=== PATIENT | female | born 1965 | race Caucasian/White ===

== ENCOUNTER 2018-03-22 14:10 | Observation (INO) ==
[2018-03-22] MEDS ORDERED: methylPREDNISolone 125 MG/2 ML VIAL IVP ONE (14:27)
[2018-03-22] MEDS ORDERED: Ipratropium/Albuterol Neb 3 ML IH ONE (14:27)
--- NOTE | 2018-03-22 14:37 | Emergency Department Note ---
Disposition Clinical Impression: Acute exacerbation of chronic obstructive airways disease Disposition: Admitted As Inpatient General Adult HPI - General Chief complaint: ED Shortness of Breath/Dyspnea Stated complaint: "Hypoglycemia/Headache" Time Seen by Provider: 03/22/18 14:20 Source: patient, family Limitations: no limitations - History of Present Illness Pain Scale: 5 - Related Data Home Medications Medication Instructions Recorded Confirmed ATROVENT Inhaler 04/09/17 Albuterol Inhaler 04/09/17 Albuterol Neb 04/09/17 Aspirin [Lo-Dose Aspirin EC] 04/09/17 Atorvastatin Calcium [Lipitor] 04/09/17 Atrovent Neb 04/09/17 Combivent Respimat Inhal [place] 04/09/17 Flonase 04/09/17 Gabapentin [Neurontin] 04/09/17 Glimepiride [Amaryl] 04/09/17 Losartan Potassium [Cozaar] 04/09/17 Metformin HCl [Glucophage] 04/09/17 Montelukast [Singulair] 04/09/17 Nabumetone [Nabumetone] 04/09/17 Oxygen [Oxygen] 04/09/17 Percocet 5-325 mg Tablet 04/09/17 Pregabalin [Lyrica] 04/09/17 Spiriva 04/09/17 Symbicort 160/4.5 04/09/17 raNITIdine HCl [Ranitidine HCl] 04/09/17 Previous Rx's Medication Instructions Recorded Ketorolac [Toradol] 10 mg PO BID #14 tablet 04/09/17 PredniSONE [Deltasone] 20 mg PO DAILY #12 tablet 04/09/17 Allergies Allergy/AdvReac Type Severity Reaction Status Date / Time acetaminophen Allergy Rash Verified 04/09/17 20:19 [From Darvocet-N] propoxyphene Allergy Rash Verified 04/09/17 20:19 [From Darvocet-N] Past Medical History - Past Medical History Medical history: Reports: arthritis, COPD, diabetes, hypertension, other Surgical history: Reports: non-contributory - Social History Smoking Status: Current every day smoker Smokeless Tobacco Status: No Alcohol use: Reports: none Drug use: Reports: none Physical Exam - General Limitations: no limitations General appearance: alert Course Vital Signs Temperature 97.7 F 03/22/18 14:12 Pulse Rate 88 03/22/18 14:12 Respiratory Rate 20 03/22/18 14:12 Blood Pressure 131/66 03/22/18 14:12 O2 Sat by Pulse Oximetry 69 03/22/18 14:12 Temperature 97.7 F 03/22/18 14:12 Pulse Rate 83 03/22/18 14:30 Respiratory Rate 18 03/22/18 14:30 Blood Pressure 145/76 03/22/18 14:30 O2 Sat by Pulse Oximetry 96 03/22/18 14:30 Oxygen Delivery Oxygen Delivery Nasal Cannula Attestation Statement - Attestation Attestation: I examined this patient and my medical decision-making was reviewed with the Resident Physician. I agree with the documented findings, disposition and treatment plan as described except to the extent set forth below. 52 year old female presntes to the ED with complaints of hypoxia, cough, hypoglycemia. Yunior states that she oes wear supplemtnal oxygen at home only at night at 2LNC. PAtient upon presentation was 69% on RA and increased to 85% on NRB and is now 89-90% on 6LNC. WE will continue to do respiratory resusitiation adn then admit to medicine.
[2018-03-22 15:06] LABS: Basophils # 0.1 K/mcL (0.0-0.2); Basophils % 0.5 %; Eosinophils # 0.2 K/mcL (0.0-0.6); Eosinophils % 1.6 %; Hematocrit 42.9 % (35.3-44.9); Hemoglobin 13.3 g/dL (11.5-15.4); Immature Granulocytes % 0.5 % (0-4); Lymphocytes # 2.5 K/mcL (0.6-4.6); Lymphocytes % 22.9 %; Mean Corpuscular Hemoglobin 29.5 pg (28.0-33.3); Mean Corpuscular Volume 95.1 fL (83.0-100.0); Mean Platelet Volume 9.3 fL (9.4-12.4); Monocytes # 0.9 K/mcL (0.0-1.3); Monocytes % 7.7 %; Neutrophils # 7.4 K/mcL (1.6-8.9); Platelet Count 224 K/mcL (140-400); Red Blood Count 4.51 M/mcL (3.82-4.97); Red Cell Distribution Width 14.9 % (11.5-14.5); Segmented Neutrophils % 66.8 %
[2018-03-22 15:14] LABS: VBG HCO3 37 mEq/L (21-27); VBG PCO2 82 mmHg (41-51); VBG PH 7.26 pH Units (7.32-7.42); VBG PO2 103 mmHg (25-50)
[2018-03-22 15:35] LABS: BUN/Creatinine Ratio 37 (6-26); Blood Urea Nitrogen 19 mg/dL (6-20); Calcium 9.1 mg/dL (8.6-10.3); Carbon Dioxide 36 mEq/L (23-29); Chloride 98 mEq/L (98-107); Glucose 125 mg/dL (70-105); Osmolality,Calculated 292 (280-300); Potassium 4.6 mEq/L (3.5-5.1); Sodium 139 mEq/L (136-145); Troponin I 0.03 ng/mL (< 0.04); eGFR For African Americans > 60 (> 60); eGFR For Non-African Americans > 60 (> 60)
--- NOTE | 2018-03-22 15:49 | Emergency Department Note ---
Disposition Clinical Impression: Acute exacerbation of chronic obstructive airways disease, Hypoxia Disposition: Admitted As Inpatient Condition: Fair Referrals: NONE,PCP [Primary Care Provider] - Forms: ED Satisfaction Letter Time of Disposition: 17:21 SOB HPI - General Chief Complaint: ED Shortness of Breath/Dyspnea Stated Complaint: "Hypoglycemia/Headache" Time Seen by Provider: 03/22/18 14:20 Source: patient, family Mode of arrival: wheelchair Limitations: no limitations Nursing Notes Reviewed: Yes Vital Signs Reviewed: Yes - History of Present Illness Patient is a 52-year-old female with past medical history of COPD, diabetes, hypertension. She presents today due to shortness of breath. She states that she has had productive cough and shortness of breath over the past week. She has a history of COPD but does not use any oxygen at home. She uses daily inhalers. She denies any fevers, nausea, vomiting, abdominal pain. She admits to occasional chest discomfort but only when coughing. She also notes that she recently increased her insulin and blood sugars have been in the 60s. Denies any lightheadedness, dizziness. - Related Data Home Medications Medication Instructions Recorded Confirmed Albuterol Sulfate [Ventolin Hfa] 2 puff IH Q4-6H PRN 03/22/18 03/22/18 Atorvastatin Calcium [Lipitor] 20 mg PO HS 03/22/18 03/22/18 Budesonide/Formoterol 160/4.5 2 puff IH BIDR 03/22/18 03/22/18 [Symbicort 160/4.5] Gabapentin [Neurontin] 800 mg PO QID 03/22/18 03/22/18 Glimepiride [Amaryl] 4 mg PO DAILY 03/22/18 03/22/18 Insulin Glargine,Hum.rec.anlog 30 unit SQ HS 03/22/18 03/22/18 [Lantus Solostar] Ipratropium [ATROVENT Inhaler] 2 puff IH Q6H PRN 03/22/18 03/22/18 Losartan Potassium [Cozaar] 100 mg PO DAILY 03/22/18 03/22/18 Meloxicam [Meloxicam] 15 mg PO DAILY 03/22/18 03/22/18 Metformin HCl [Glucophage] 1,000 mg PO BID 03/22/18 03/22/18 Montelukast [Singulair] 10 mg PO HS 03/22/18 03/22/18 Oxycodone HCl/Acetaminophen 1 tab PO TID PRN 03/22/18 03/22/18 [Percocet 7.5-325 mg Tablet] Ranitidine HCl [Acid Air Brush Operator] 150 mg PO BID 03/22/18 03/22/18 Saxagliptin HCl [Onglyza] 5 mg PO DAILY 03/22/18 03/22/18 Allergies Allergy/AdvReac Type Severity Reaction Status Date / Time acetaminophen Allergy Rash Verified 03/22/18 16:26 [From Darvocet-N] propoxyphene Allergy Rash Verified 03/22/18 16:26 [From Darvocet-N] All systems ED: reviewed and negative except as stated. Constitutional: Denies: fever Cardiovascular: Reports: chest pain Respiratory: Reports: cough, dyspnea, wheezes Gastrointestinal: Denies: abdominal pain, nausea, vomiting, diarrhea Genitourinary: Denies: urgency, dysuria Integumentary: Denies: rash Neurological: Denies: headache, weakness, numbness, paresthesias Endocrine: Reports: fatigue Past Medical History - Past Medical History Attestation: Yes The following information was validated with the patient. Source: patient Medical history: Reports: arthritis, COPD, diabetes, hypertension, other Surgical history: Reports: non-contributory - Social History Smoking Status: Current every day smoker Smokeless Tobacco Status: No Alcohol use: Reports: none Drug use: Reports: none Physical Exam - General Limitations: no limitations General appearance: alert - Head Head exam: atraumatic, normocephalic, normal inspection - Eye Eye exam: Present: normal appearance, PERRL, EOMI - ENT ENT exam: normal exam, normal oropharynx, mucous membranes moist - Neck Neck exam: Present: normal inspection, full ROM, trachea midline - Chest Chest inspection: Present: normal inspection, symmetric chest wall rise - Respiratory Respiratory exam: Present: wheezes (Diffuse wheezes throughout), other (No signs of accessory muscle use). Absent: stridor, accessory muscle use - Cardiovascular Cardiovascular exam: Present: regular rate, normal rhythm, normal heart sounds - Abdominal Exam Abdominal exam: Present: soft, Non-Tender. Absent: tenderness, distention, guarding, rebound, rigidity - Extremities Exam Extremities exam: Present: normal inspection, full ROM. Absent: tenderness, pedal edema - Neurological Exam Neurological exam: Present: alert, oriented X3 - Psychiatric Psychiatric exam: Present: normal affect, normal mood - Skin Skin exam: Present: warm, dry, intact, normal color Course Course Narrative: Patient was satting 69% on presentation. She is placed on 6 L nasal cannula and started satting in the mid 90s. Despite low oxygen saturation, she had no signs of overt respiratory distress. She is mildly tachypneic but had no accessory muscle use. She did have diffuse wheezes throughout. She is mentating well. Patient was given DuoNeb 3, Solu-Medrol. Basic workup was obtained including chest x-ray, EKG, troponin. Troponin negative, EKG showed normal sinus rhythm with no acute ST changes. Chest x-ray was negative for any pneumonia but did show small pleural effusion. Despite receiving breathing treatments, patient continues to require 4 L nasal cannula oxygen to keep saturation above 88%. Patient did trial herself off oxygen despite the medication not to and her saturation dropped again to the 60s. VBG was obtained and does show CO2 level in the 80s. This is likely chronic due to the patient still mentating well despite a high CO2 levels. We will need to admit the patient for further care. Azithromycin has also been added to patient's current regimen. Patient accepted to the hospitalist by Pablo Taylor Chest X-Ray 03/22/18 14:27 IMPRESSION: Increased interstitial markings which may reflect mild edema. Mild blunting of the right costophrenic angle which may reflect a small pleural effusion. D/ / Estefanía Stokes MD / Estefanía Stokes MD Interpreting Provider: Estefanía Stokes MD Vital Signs Temperature 97.7 F 03/22/18 14:12 Pulse Rate 88 03/22/18 14:12 Respiratory Rate 20 03/22/18 14:12 Blood Pressure 131/66 03/22/18 14:12 O2 Sat by Pulse Oximetry 69 03/22/18 14:12 Temperature 97.7 F 03/22/18 14:12 Pulse Rate 81 03/22/18 16:45 Respiratory Rate 18 03/22/18 16:45 Blood Pressure 141/73 03/22/18 16:45 O2 Sat by Pulse Oximetry 94 03/22/18 16:45 Oxygen Delivery Oxygen Delivery Room Air Shortness of Breath/Dyspnea - [facility] Narrative Medical decision making narrative: Patient was satting 69% on presentation. She is placed on 6 L nasal cannula and started satting in the mid 90s. Despite low oxygen saturation, she had no signs of overt respiratory distress. She is mildly tachypneic but had no accessory muscle use. She did have diffuse wheezes throughout. She is mentating well. Patient was given DuoNeb 3, Solu-Medrol. Basic workup was obtained including chest x-ray, EKG, troponin. Troponin negative, EKG showed normal sinus rhythm with no acute ST changes. Chest x-ray was negative for any pneumonia but did show small pleural effusion. Despite receiving breathing treatments, patient continues to require 4 L nasal cannula oxygen to keep saturation above 88%. Patient did trial herself off oxygen despite the medication not to and her saturation dropped again to the 60s. VBG was obtained and does show CO2 level in the 80s. This is likely chronic due to the patient still mentating well despite a high CO2 levels. We will need to admit the patient for further care. Azithromycin has also been added to patient's current regimen. Patient accepted to the hospitalist by Pablo Taylor - Medical Records Medical records reviewed: Yes I reviewed the patient's medical records. - Lab Data Lab results reviewed: Yes I reviewed the patient's lab results. Result diagrams: 03/22/18 14:45 03/22/18 14:27 Lab Results 03/22/18 03/22/18 03/22/18 Range/Units 14:27 14:45 14:45 WBC 11.1 (4.3-11.1) K/mcL RBC 4.51 (3.82-4.97) M/mcL Hgb 13.3 (11.5-15.4) g/dL Hct 42.9 (35.3-44.9) % MCV 95.1 (83.0-100.0) fL MCH 29.5 (28.0-33.3) pg MCHC 31.0 L (31.6-35.5) g/dL RDW 14.9 H (11.5-14.5) % Plt Count 224 (140-400) K/mcL MPV 9.3 L (9.4-12.4) fL Immature Gran % 0.5 (0-4) % Seg Neutrophils % 66.8 % Lymphocytes % 22.9 % Monocytes % 7.7 % Eosinophils % 1.6 % Basophils % 0.5 % Neutrophils # 7.4 (1.6-8.9) K/mcL Lymphocytes # 2.5 (0.6-4.6) K/mcL Monocytes # 0.9 (0.0-1.3) K/mcL Eosinophils # 0.2 (0.0-0.6) K/mcL Basophils # 0.1 (0.0-0.2) K/mcL VBG pH (7.32-7.42) pH Units VBG pCO2 (41-51) mmHg VBG pO2 (25-50) mmHg VBG HCO3 (21-27) mEq/L Sodium 139 (136-145) mEq/L Potassium 4.6 (3.5-5.1) mEq/L Chloride 98 (98-107) mEq/L Carbon Dioxide 36 H (23-29) mEq/L BUN 19 (6-20) mg/dL Creatinine 0.51 L (0.60-1.20) mg/dL Est GFR ( Amer) > 60 (> 60) Est GFR (Non-Af Amer) > 60 (> 60) BUN/Creatinine Ratio 37 H (6-26) Glucose 125 H (70-105) mg/dL Calculated Osmolality 292 (280-300) Lactic Acid (0.5-2.2) mmol/L Calcium 9.1 (8.6-10.3) mg/dL Troponin I 0.03 (< 0.04) ng/mL B-Natriuretic Peptide 66 (Less than 100) pg/mL Person Notif of Crit 03/22/18 03/22/18 03/22/18 Range/Units 15:07 15:08 15:36 WBC (4.3-11.1) K/mcL RBC (3.82-4.97) M/mcL Hgb (11.5-15.4) g/dL Hct (35.3-44.9) % MCV (83.0-100.0) fL MCH (28.0-33.3) pg MCHC (31.6-35.5) g/dL RDW (11.5-14.5) % Plt Count (140-400) K/mcL MPV (9.4-12.4) fL Immature Gran % (0-4) % Seg Neutrophils % % Lymphocytes % % Monocytes % % Eosinophils % % Basophils % % Neutrophils # (1.6-8.9) K/mcL Lymphocytes # (0.6-4.6) K/mcL Monocytes # (0.0-1.3) K/mcL Eosinophils # (0.0-0.6) K/mcL Basophils # (0.0-0.2) K/mcL VBG pH 7.26 L (7.32-7.42) pH Units VBG pCO2 82 H* (41-51) mmHg VBG pO2 103 H (25-50) mmHg VBG HCO3 37 H (21-27) mEq/L Sodium (136-145) mEq/L Potassium (3.5-5.1) mEq/L Chloride (98-107) mEq/L Carbon Dioxide (23-29) mEq/L BUN (6-20) mg/dL Creatinine (0.60-1.20) mg/dL Est GFR ( Amer) (> 60) Est GFR (Non-Af Amer) (> 60) BUN/Creatinine Ratio (6-26) Glucose (70-105) mg/dL Calculated Osmolality (280-300) Lactic Acid 1.4 1.1 (0.5-2.2) mmol/L Calcium (8.6-10.3) mg/dL Troponin I (< 0.04) ng/mL B-Natriuretic Peptide (Less than 100) pg/mL Person Notif of Aislinn TUTTLE - Radiology Data Radiology results reviewed: Yes I reviewed the patient's radiology results. Chest X-Ray 03/22/18 14:27 IMPRESSION: Increased interstitial markings which may reflect mild edema. Mild blunting of the right costophrenic angle which may reflect a small pleural effusion. D/ / Estefanía Stokes MD / Estefanía Stokes MD Interpreting Provider: Estefanía Stokes MD - EKG Data EKG attestation: Yes I reviewed and interpreted this EKG. EKG results narrative: 03/22/2018 at 14:21. Normal sinus rhythm. Rate 86. 187. QRS 93. QTC 374. Normal axis. No acute ST elevation or depression. S.B.A.R. - S.B.A.R. Situation: Demographics, MOA Background: Presenting Complaint, Relevant PMH, Meds, & Allergies Assessment: Vital Signs, Course and respsone to treatment, Exam Concerns, Patient/Family Expectation, Pertinant Lab Results, Outstanding Labs Recommendation: Barrier(s) to disposition, Recommendation based on pending studies, treatments, or consults S.B.A.R. Report Given to: Pablo taylor
[2018-03-22] MEDS ORDERED: Azithromycin 500 MG in D5% in Water 250 ML IVPB ONE (17:03)
[2018-03-22 17:49] LABS: VBG HCO3 37 mEq/L (21-27); VBG PCO2 80 mmHg (41-51); VBG PH 7.27 pH Units (7.32-7.42); VBG PO2 237 mmHg (25-50)
[2018-03-22] MEDS ORDERED: Ondansetron 4 MG/2 ML VIAL IVP PRN (20:11)
[2018-03-22] MEDS ORDERED: Acetaminophen 325 MG TABLET PO PRN (20:20)
[2018-03-22] MEDS ORDERED: Naloxone 0.4 MG/ML INJ IVP PRN (20:20)
[2018-03-22] MEDS ORDERED: Dextrose Gel 15 GM/37.5 ML TUBE PO PRN ×2 (20:28)
[2018-03-22] MEDS ORDERED: *HR* Dextrose 50 % in Water (Syg) 50 ML SYRINGE IVP PRN (20:28)
[2018-03-22] MEDS ORDERED: D5% in Water 1,000 ML IVC PRN (20:28)
--- NOTE | 2018-03-22 20:38 | Internal Med History&Physical ---
<Miller Baker - Last Filed: 03/22/18 20:54> Date of Encounter: 03/22/18 Time of Encounter: 20:33 Internal Medicine - H&P: HPI Chief complaint: low blood sugar, shortness of breath. Admitted From: Emergency Dept Plans for Post Hospital Care: Home History of present illness: Ms. Stock is a 52 year old female with past medical history of diabetes, lumbar stenosis, depression, GERD, hypertension, aortic stenosis, hyperlipidemia , COPD (worst 2 L oxygen at night), tobacco use, sleep apnea (not compliant with home CPAP). Patient states over the past 3 days, her blood sugar has been continuously dropping to the 50s. She used to take 30 units of Lantus at night but has stopped this due to hypoglycemia. She also reports increased shortness of breath since about 4 days ago. She also reports increased cough with yellow/ white sputum production. Patient admits to nausea without vomiting. She denies diarrhea, fever, chills. She reports mild dull chest pain with cough that has since subsided. She denies dizziness, hematuria, hematocrit easier, melena. According to ER note, patient was setting in the low 90s on high flow oxygen. She was admitted for COPD exacerbation. Past Med Surg Social Fam HX - Past Medical History Medical history: arthritis, COPD, diabetes, hypertension, other - Past Surgical History Surgical History: non-contributory - Social History Smoking Status: Current every day smoker Smokeless Tobacco Status: No Alcohol use: none Drug use: none Internal Medicine - H&P: Meds Albuterol Sulfate [Ventolin Hfa] 2 puff IH Q4-6H PRN 03/22/18 [History] Atorvastatin Calcium [Lipitor] 20 mg PO HS 03/22/18 [History] Budesonide/Formoterol 160/4.5 [Symbicort 160/4.5] 2 puff IH BIDR 03/22/18 [ History] Gabapentin [Neurontin] 800 mg PO QID 03/22/18 [History] Glimepiride [Amaryl] 4 mg PO DAILY 03/22/18 [History] Insulin Glargine,Hum.rec.anlog [Lantus Solostar] 30 unit SQ HS 03/22/18 [History ] Ipratropium [ATROVENT Inhaler] 2 puff IH Q6H PRN 03/22/18 [History] Losartan Potassium [Cozaar] 100 mg PO DAILY 03/22/18 [History] Meloxicam [Meloxicam] 15 mg PO DAILY 03/22/18 [History] Metformin HCl [Glucophage] 1,000 mg PO BID 03/22/18 [History] Montelukast [Singulair] 10 mg PO HS 03/22/18 [History] Oxycodone HCl/Acetaminophen [Percocet 7.5-325 mg Tablet] 1 tab PO TID PRN [History] Ranitidine HCl [Acid Mica Plate Layer] 150 mg PO BID 03/22/18 [History] Saxagliptin HCl [Onglyza] 5 mg PO DAILY 03/22/18 [History] 3 Allergy/AdvReac Type Severity Reaction Status Date / Time acetaminophen Allergy Rash Verified 03/22/18 16:26 [From Darvocet-N] propoxyphene Allergy Rash Verified 03/22/18 16:26 [From Darvocet-N] All Systems PM: A 10-system review of systems was performed and is negative for pertinent findings except as documented above in the HPI. - Constitutional Constitutional: as per HPI - EENT Eyes: as per HPI Ears: as per HPI Nose, mouth and throat: as per HPI - Breasts Breasts: as per HPI - Cardiovascular Cardiovascular ROS IM: as per HPI - Respiratory Respiratory: as per HPI - Gastrointestinal Gastrointestinal: as per HPI - Genitourinary Genitourinary: as per HPI Menstruation: as per HPI - Musculoskeletal Musculoskeletal ROS IM: as per HPI - Integumentary Integumentary IM: as per HPI - Neurological Neurological ROS: as per HPI - Psychiatric Psychiatric: as per HPI - Endocrine Endocrine IM: as per HPI - Hematologic/Lymphatic Hematologic/Lymphatic: as per HPI - Constitutional Vitals: Temp Pulse Resp BP Pulse Ox 98.3 F 80 20 143/71 91 03/22/18 19:56 03/22/18 19:56 03/22/18 19:56 03/22/18 19:56 03/22/18 19:56 General appearance: Present: A&O X 3, morbidly obese, pleasant, no acute distress, answers questions appropriately - Head Head exam: Present: atraumatic, normocephalic - Neck Neck exam general surgery: Present: supple, trachea midline - Respiratory Additional comments: Course breath sounds throughout, inspiratory and expiratory wheezing present in all lung allen. - Cardiovascular Cardiovascular exam: Present: RRR, +S1, +S2 - GI/Abdominal GI/Abdominal exam: Present: normal bowel sounds, soft. Absent: distended, tenderness - Extremities Exam Extremities exam: Absent: cyanotic, pedal edema - Neurological Exam Neurological exam: Present: alert, oriented X3, no focal deficits - Skin Skin exam: Present: intact Internal Med - H&P Results - Labs CBC & Chem 7: 03/22/18 14:45 03/22/18 14:27 - ABG Interpretation ABG results: 03/22/18 17:41 VBG pH 7.27 L VBG pCO2 80 H* VBG pO2 237 H VBG HCO3 37 H - Assessment and plan (1) Acute exacerbation of chronic obstructive airways disease Current Visit: Yes Status: Acute Assessment and plan: Patient reports 3 days of increased cough with yellow/white sputum production, increased shortness of breath. Chest x-ray showed increased interstitial markings, mild edema, small right pleural effusion VBG shows respiratory acidosis with metabolic compensation likely secondary to COPD exacerbation plan: Zithromax day 1 scheduled duonebs 40 mg methylprednisolone Q8 hours Symbicort consult respiratory therapy for initiation of BiPAP oxygen trend troponins (2) Hypoglycemia Current Visit: Yes Status: Acute Assessment and plan: Patient reports multiple episodes of hypoglycemia at home with sugars running in the 50s. She is to take 30 units of Lantus at night, but reports have stopped doing this because of hypoglycemia. Suspected effect of sulfonylurea, consider discontinuing prior to discharge. (3) Hyperlipidemia Current Visit: Yes Status: Acute Assessment and plan: Continue Od[place] Qualifiers: Hyperlipidemia type: unspecified Qualified Code(s): E78.5 - Hyperlipidemia , unspecified (4) Hypertension Current Visit: Yes Status: Acute Assessment and plan: Continue home medications Qualifiers: Hypertension type: essential hypertension Qualified Code(s): I10 - Essential (primary) hypertension (5) DVT prophylaxis Current Visit: Yes Status: Acute Assessment and plan: Heparin SQ (6) Diabetes mellitus Current Visit: Yes Status: Chronic Assessment and plan: Patient takes insulin, metformin, sulfonylurea at home because of history of hypoglycemia at home, will not start basal insulin at this time plan: low-dose sliding scale insulin, cardiac diet, aCHS Accu checks Qualifiers: Diabetes mellitus type: type 2 Diabetes mellitus ferry terminal supervisor insulin use: unspecified ferry terminal supervisor insulin use status Diabetes mellitus complication status : with unspecified complications Qualified Code(s): E11.8 - Type 2 diabetes mellitus with unspecified complications - Time Spent With Patient Total time spent is greater than 50% in coordination of care (as documented) at patient's floor/unit and/or counseling patient: <Kingsley Vanegas P - Last Filed: 03/22/18 21:37> Date of Encounter: 03/22/18 Internal Medicine - H&P: HPI History of present illness: Ms. Stock is a 52 year old female All Systems PM: A 10-system review of systems was performed and is negative for pertinent findings except as documented above in the HPI. - Constitutional Vitals: Temp Pulse Resp BP Pulse Ox 98.3 F 80 23 143/71 93 03/22/18 19:56 03/22/18 19:56 03/22/18 21:04 03/22/18 19:56 03/22/18 21:04 Internal Med - H&P Results - Labs CBC & Chem 7: 03/22/18 14:45 03/22/18 14:27 - ABG Interpretation ABG results: 03/22/18 17:41 VBG pH 7.27 L VBG pCO2 80 H* VBG pO2 237 H VBG HCO3 37 H - Attending Attestation I examined this patient and my medical decision-making was reviewed with the Resident Physician. I agree with the documented findings, disposition and treatment plan as described except to the extent set forth below. seen and examined multiple comobidities admitted with COPD exacerbation Abx/Steroids/BDAs KAREN protocol ECHO BIPAP as necessary may need cardiology evaluation. - Assessment and plan (1) Acute exacerbation of chronic obstructive airways disease Current Visit: Yes Status: Acute (2) Hypoglycemia Current Visit: Yes Status: Acute (3) Hyperlipidemia Current Visit: Yes Status: Acute Qualifiers: Hyperlipidemia type: unspecified Qualified Code(s): E78.5 - Hyperlipidemia , unspecified (4) Hypertension Current Visit: Yes Status: Acute Qualifiers: Hypertension type: essential hypertension Qualified Code(s): I10 - Essential (primary) hypertension (5) DVT prophylaxis Current Visit: Yes Status: Acute (6) Diabetes mellitus Current Visit: Yes Status: Chronic Qualifiers: Diabetes mellitus type: type 2 Diabetes mellitus usp insulin use: unspecified usp insulin use status Diabetes mellitus complication status : with unspecified complications Qualified Code(s): E11.8 - Type 2 diabetes mellitus with unspecified complications - Time Spent With Patient Total time spent is greater than 50% in coordination of care (as documented) at patient's floor/unit and/or counseling patient:
[2018-03-22] MEDS: Budesonide/Formoterol 160/4.5 MDI IH SCH (21:01)
[2018-03-22] MEDS ORDERED: Ipratropium/Albuterol Neb 3 ML IH PRN (21:38)
[2018-03-22] MEDS: Famotidine 20 MG TABLET PO SCH (22:06)
[2018-03-22] MEDS: Gabapentin 400 MG CAPSULE PO SCH (22:06)
[2018-03-22] MEDS: Insulin LISPRO 300 UNITS/3 ML VIAL SQ SCH (22:07)
[2018-03-22] MEDS: *HR* Heparin 5,000 UNIT/ML VIAL SQ SCH (22:08)
[2018-03-22] MEDS: Ipratropium/Albuterol Neb 3 ML IH SCH (23:33)
[2018-03-23] MEDS: MethylPREDNISolone 40 MG/ML VIAL IVP SCH ×3 (00:30→17:09)
[2018-03-23 03:16] LABS: Basophils % 0.1 %; Hemoglobin 13.2 g/dL (11.5-15.4); Immature Granulocytes % 0.8 % (0-4); Lymphocytes # 1.1 K/mcL (0.6-4.6); Lymphocytes % 12.2 %; Mean Corpuscular Hemoglobin 28.5 pg (28.0-33.3); Mean Platelet Volume 9.3 fL (9.4-12.4); Monocytes # 0.1 K/mcL (0.0-1.3); Monocytes % 0.9 %; Neutrophils # 7.4 K/mcL (1.6-8.9); Platelet Count 218 K/mcL (140-400); Red Blood Count 4.63 M/mcL (3.82-4.97); Red Cell Distribution Width 14.6 % (11.5-14.5)
[2018-03-23 03:35] LABS: BUN/Creatinine Ratio 58 (6-26); Blood Urea Nitrogen 25 mg/dL (6-20); Calcium 8.8 mg/dL (8.6-10.3); Carbon Dioxide 34 mEq/L (23-29); Chloride 99 mEq/L (98-107); Glucose 231 mg/dL (70-105); Osmolality,Calculated 296 (280-300); Potassium 5.6 mEq/L (3.5-5.1); Sodium 137 mEq/L (136-145); eGFR For African Americans > 60 (> 60); eGFR For Non-African Americans > 60 (> 60)
[2018-03-23] MEDS: Ipratropium/Albuterol Neb 3 ML IH SCH ×6 (03:40→23:37)
[2018-03-23] MEDS: *HR* Heparin 5,000 UNIT/ML VIAL SQ SCH ×3 (06:28→21:48)
[2018-03-23] MEDS: Budesonide/Formoterol 160/4.5 MDI IH SCH ×2 (07:41→19:55)
[2018-03-23] MEDS ORDERED: Perflutren Lipid Microsphere 1.3 ML in 0.9 % Sodium Chloride 8.7 ML IVP ONE (09:27)
[2018-03-23] MEDS: Insulin LISPRO 300 UNITS/3 ML VIAL SQ SCH ×4 (09:29→21:55)
[2018-03-23] MEDS: Famotidine 20 MG TABLET PO SCH ×2 (09:30→21:48)
[2018-03-23] MEDS: Gabapentin 400 MG CAPSULE PO SCH ×4 (09:30→21:47)
--- NOTE | 2018-03-23 11:13 | Internal Med Progress Note ---
Date of Encounter: 03/23/18 Time of Encounter: 11:05 - Assessment and plan (1) Acute exacerbation of chronic obstructive airways disease Current Visit: Yes Status: Acute Assessment and plan: Acute on chronic hypoxic hypercapnic respiratory failure secondary to acute COPD exacerbation from acute bacterial bronchitis 3 days of increased cough with yellow/white sputum production, increased shortness of breath. Chest x-ray showed increased interstitial markings, mild acute pulmonary edema, small right pleural effusion Continue Zithromax day 2 scheduled duonebs 40 mg methylprednisolone Q8 hours oxygen (uses 2 L at night) (2) Hypoglycemia Current Visit: Yes Status: Acute Assessment and plan: Patient reports multiple episodes of hypoglycemia at home with sugars running in the 50s. She was taking 30 units of Lantus at night Decrease Lantus down to 15 units at night insulin sliding scale Takes metformin and glimepiride 4 mg daily Check hemoglobin A1c (3) Hyperlipidemia Current Visit: Yes Status: Acute Assessment and plan: Continue Statin Qualifiers: Hyperlipidemia type: unspecified Qualified Code(s): E78.5 - Hyperlipidemia , unspecified (4) Hypertension Current Visit: Yes Status: Acute Assessment and plan: Stable Qualifiers: Hypertension type: essential hypertension Qualified Code(s): I10 - Essential (primary) hypertension (5) Diabetes mellitus Current Visit: Yes Status: Chronic Qualifiers: Diabetes mellitus type: type 2 Diabetes mellitus senior portfolio manager insulin use: unspecified halfway insulin use status Diabetes mellitus complication status : with unspecified complications Qualified Code(s): E11.8 - Type 2 diabetes mellitus with unspecified complications (6) Pulmonary edema Current Visit: Yes Status: Acute Assessment and plan: likely due to infection Start lasix IV ECHO ordered Qualifiers: Chronicity: acute Qualified Code(s): J81.0 - Acute pulmonary edema - Time Spent With Patient Total time spent is greater than 50% in coordination of care (as documented) at patient's floor/unit and/or counseling patient: - Subjective Interval history: Continues to feel short of breath, denies any chest pain, no abdominal pain, diarrhea or dysuria. No fevers - Constitutional Vitals: Temp Pulse Resp BP Pulse Ox 97.8 F 68 16 123/81 95 03/23/18 07:43 03/23/18 07:43 03/23/18 07:43 03/23/18 07:43 03/23/18 07:43 General appearance: Present: A&O X 3, morbidly obese, pleasant, no acute distress, answers questions appropriately - Head Head exam: Present: atraumatic, normocephalic - Eye Eye exam: Present: PERRL, conjuntiva pink, sclera anicteric Pupils: Present: PERRL - Neck Neck exam general surgery: Present: supple, trachea midline. Absent: lymphadenopathy - Respiratory Respiratory exam: Present: CTAB, wheezes (Diffuse wheezing). Absent: accessory muscle use, rales, rhonchi - Cardiovascular Cardiovascular exam: Present: RRR, +S1, +S2. Absent: diastolic murmur, gallop, rubs, systolic murmur - GI/Abdominal GI/Abdominal exam: Present: normal bowel sounds, soft, no peritoneal signs. Absent: distended, tenderness - Extremities Exam Extremities exam: Present: warm, radial pulses palpable and symmetrical. Absent : calf tenderness, cyanotic, pedal edema - Neurological Exam Neurological exam: Present: CN II-XII intact, oriented X3, no focal deficits. Absent: pronater drift, facial droop, speech deficit - Skin Skin exam: Present: dry, intact Internal Medicine: Result - Labs CBC & Chem 7: 03/23/18 03:03 03/23/18 03:03 Labs: Short CBC 03/23/18 Range/Units 03:03 WBC 8.6 (4.3-11.1) K/mcL Hgb 13.2 (11.5-15.4) g/dL Hct 44.0 (35.3-44.9) % Plt Count 218 (140-400) K/mcL Neutrophils # 7.4 (1.6-8.9) K/mcL BMP 03/23/18 03:03 Sodium 137 Potassium 5.6 H Chloride 99 Carbon Dioxide 34 H BUN 25 H Creatinine 0.43 L Glucose 231 H Calcium 8.8 Cardiac Enzymes 03/22/18 03/23/18 Range/Units 21:17 03:03 Troponin I < 0.03 < 0.03 (< 0.04) ng/mL Consult Discharge Plan - Plan Referrals: NONE,PCP [Primary Care Provider] -
[2018-03-23 12:00] LABS: Estimated Average Glucose 186 mg/dl; Hemoglobin A1C 8.1 %
[2018-03-23] MEDS: *HR* Glimepiride 4 MG TABLET PO SCH (13:10)
[2018-03-23] MEDS: *HR* OxyCODONE/APAP 7.5/325 TABLET PO PRN (13:11)
[2018-03-23] MEDS: Furosemide 20 MG/2 ML VIAL IVP SCH ×2 (13:11→21:48)
[2018-03-23] MEDS ORDERED: Azithromycin 500 MG in D5% in Water 250 ML IVPB SCH (18:00)
[2018-03-23] MEDS: Insulin DETEMIR 100 UNIT/ML X5UNITS SQ SCH (21:53)
[2018-03-24] MEDS: MethylPREDNISolone 40 MG/ML VIAL IVP SCH ×3 (01:38→21:11)
[2018-03-24 03:35] LABS: BUN/Creatinine Ratio 54 (6-26); Blood Urea Nitrogen 28 mg/dL (6-20); Calcium 8.7 mg/dL (8.6-10.3); Carbon Dioxide 40 mEq/L (23-29); Chloride 96 mEq/L (98-107); Glucose 362 mg/dL (70-105); Osmolality,Calculated 306 (280-300); Potassium 4.8 mEq/L (3.5-5.1); Sodium 138 mEq/L (136-145); eGFR For African Americans > 60 (> 60); eGFR For Non-African Americans > 60 (> 60)
[2018-03-24] MEDS: Ipratropium/Albuterol Neb 3 ML IH SCH ×6 (04:43→23:43)
[2018-03-24] MEDS: *HR* Heparin 5,000 UNIT/ML VIAL SQ SCH ×3 (06:59→21:12)
[2018-03-24] MEDS: Budesonide/Formoterol 160/4.5 MDI IH SCH ×2 (07:50→20:28)
[2018-03-24] MEDS: *HR* Glimepiride 4 MG TABLET PO SCH (08:48)
[2018-03-24] MEDS: Famotidine 20 MG TABLET PO SCH ×2 (08:48→21:11)
[2018-03-24] MEDS: Furosemide 20 MG/2 ML VIAL IVP SCH ×2 (08:48→21:11)
[2018-03-24] MEDS: Gabapentin 400 MG CAPSULE PO SCH ×4 (08:48→21:11)
[2018-03-24] MEDS: Insulin LISPRO 300 UNITS/3 ML VIAL SQ SCH ×4 (08:48→21:13)
[2018-03-24] MEDS: *HR* OxyCODONE/APAP 7.5/325 TABLET PO PRN ×2 (08:56→15:47)
[2018-03-24] MEDS ORDERED: Azithromycin 250 MG TABLET PO ONE (14:12)
--- NOTE | 2018-03-24 14:13 | Internal Med Progress Note ---
Date of Encounter: 03/24/18 Time of Encounter: 14:11 - Assessment and plan (1) Acute exacerbation of chronic obstructive airways disease Current Visit: Yes Status: Acute Assessment and plan: Acute on chronic hypoxic hypercapnic respiratory failure secondary to acute COPD exacerbation from acute bacterial bronchitis 3 days of increased cough with yellow/white sputum production, increased shortness of breath. Chest x-ray showed increased interstitial markings, mild acute pulmonary edema, small right pleural effusion Zithromax day 3 (stop after 3rd dose) scheduled duonebs methylprednisolone IV BID oxygen (uses 2 L at night) (2) Hypoglycemia Current Visit: Yes Status: Acute Assessment and plan: Patient reports multiple episodes of hypoglycemia at home with sugars running in the 50s. She was taking 30 units of Lantus at night Decreased Lantus down to 15 units at night insulin sliding scale Takes metformin and glimepiride 4 mg daily hemoglobin A1c was 8.1 (3) Hyperlipidemia Current Visit: Yes Status: Acute Assessment and plan: Continue Statin Qualifiers: Hyperlipidemia type: unspecified Qualified Code(s): E78.5 - Hyperlipidemia , unspecified (4) Hypertension Current Visit: Yes Status: Acute Assessment and plan: Stable Qualifiers: Hypertension type: essential hypertension Qualified Code(s): I10 - Essential (primary) hypertension (5) Diabetes mellitus Current Visit: Yes Status: Chronic Assessment and plan: Patient takes insulin, metformin, sulfonylurea at home because of history of hypoglycemia at home, will not start basal insulin at this time plan: low-dose sliding scale insulin, cardiac diet, aCHS Accu checks Qualifiers: Diabetes mellitus type: type 2 Diabetes mellitus adjunct faculty for medical terminology insulin use: unspecified adjunct faculty for medical terminology insulin use status Diabetes mellitus complication status : with unspecified complications Qualified Code(s): E11.8 - Type 2 diabetes mellitus with unspecified complications (6) Pulmonary edema Current Visit: Yes Status: Acute Assessment and plan: likely due to infection Started lasix IV ECHO showed EF 60-65% Qualifiers: Chronicity: acute Qualified Code(s): J81.0 - Acute pulmonary edema - Time Spent With Patient Total time spent is greater than 50% in coordination of care (as documented) at patient's floor/unit and/or counseling patient: - Subjective Interval history: Feeling less short of breath, denies any chest pain, no abdominal pain, diarrhea or dysuria. No fevers - Constitutional Vitals: Temp Pulse Resp BP Pulse Ox 98.3 F 69 15 130/67 93 03/24/18 10:29 03/24/18 10:29 03/24/18 11:12 03/24/18 10:29 03/24/18 11:12 General appearance: Present: A&O X 3, morbidly obese, pleasant, no acute distress, answers questions appropriately Exam: - Head Head exam: Present: atraumatic, normocephalic - Eye Eye exam: Present: PERRL, conjuntiva pink, sclera anicteric Pupils: Present: PERRL - Neck Neck exam general surgery: Present: supple, trachea midline. Absent: lymphadenopathy - Respiratory Respiratory exam: Present: CTAB, wheezes (less Diffuse wheezing). Absent: accessory muscle use, rales, rhonchi - Cardiovascular Cardiovascular exam: Present: RRR, +S1, +S2. Absent: diastolic murmur, gallop, rubs, systolic murmur - GI/Abdominal GI/Abdominal exam: Present: normal bowel sounds, soft, no peritoneal signs. Absent: distended, tenderness - Extremities Exam Extremities exam: Present: warm, radial pulses palpable and symmetrical. Absent : calf tenderness, cyanotic, pedal edema - Neurological Exam Neurological exam: Present: CN II-XII intact, oriented X3, no focal deficits. Absent: pronater drift, facial droop, speech deficit - Skin Skin exam: Present: dry, intact Internal Medicine: Result - Labs CBC & Chem 7: 03/23/18 03:03 03/24/18 02:43 Labs: BMP 03/24/18 02:43 Sodium 138 Potassium 4.8 Chloride 96 L Carbon Dioxide 40 H* BUN 28 H Creatinine 0.52 L Glucose 362 H Calcium 8.7 Consult Discharge Plan - Plan Referrals: NONE,PCP [Primary Care Provider] -
--- NOTE | 2018-03-24 15:34 | Electrocardiograph Report ---
[address] [id number] Test Date: 2018-03-22 Pat Name: Spring Stock Department: 103 Room: 2NE25 Gender: F Joint Terminal Attack Controller: : 1965 Requested By: Wu Singh Order Number: [id number] Reading MD: Ace Kirby Measurements Intervals [place] Rate: 86 P: 19 [place]: 187 QRS: 54 QRSD: 93 T: 42 QT: 331 QTc: 374 Interpretive Statements SINUS RHYTHM Electronically Signed On 03-24-2018 15:32:26 EDT by Ace Kirby
[2018-03-24] MEDS: Insulin DETEMIR 100 UNIT/ML X5UNITS SQ SCH (21:12)
[2018-03-25] MEDS: Ipratropium/Albuterol Neb 3 ML IH SCH ×6 (04:17→23:39)
[2018-03-25] MEDS: *HR* Heparin 5,000 UNIT/ML VIAL SQ SCH ×3 (05:05→23:20)
[2018-03-25] MEDS: Budesonide/Formoterol 160/4.5 MDI IH SCH ×2 (07:44→20:08)
--- NOTE | 2018-03-25 08:20 | Internal Med Progress Note ---
<Jason Vuong - Last Filed: 03/25/18 17:35> Date of Encounter: 03/25/18 Time of Encounter: 10:00 - Assessment and plan (1) Acute respiratory failure with hypoxia and hypercapnia Current Visit: Yes Status: Acute Assessment and plan: Acute respiratory failure with hypoxia and hypercapnia likely secondary to COPD exacerbation VBG on arrival 7.27/80/237/37 On exam when the patient removes oxygen or BiPAP she desaturates into the low 80s Additionally, the patient has been increasing in bicarbonate on BMP daily Likely the patient is a chronic retainer of CO2 and requires BiPAP at home Additionally, the patient has had some encephalopathy which is likely secondary to CO2 narcosis We will continue the patient with BiPAP, qualify overnight (2) Acute exacerbation of chronic obstructive airways disease Current Visit: Yes Status: Acute Assessment and plan: -Acute on chronic hypoxic hypercapnic respiratory failure secondary to acute COPD exacerbation from acute bacterial bronchitis -3 days of increased cough with yellow/white sputum production, increased shortness of breath. -Chest x-ray showed increased interstitial markings, mild acute pulmonary edema , small right pleural effusion -Completed Zithromax day 3 (stop after 3rd dose) -Continue scheduled duonebs Patient has remained hypercarbic in the morning, and somewhat encephalopathic at night Will likely require home BiPAP We will do qualification overnight (3) Hypoglycemia Current Visit: Yes Status: Acute Assessment and plan: Patient reports multiple episodes of hypoglycemia at home with sugars running in the 50s. She was taking 30 units of Lantus at night at home We will give 20U lantus HS, insulin sliding scale for days Takes metformin and glimepiride 4 mg daily, hold while in hospital hemoglobin A1c was 8.1 (4) Hyperlipidemia Current Visit: Yes Status: Acute Assessment and plan: Continue Statin Qualifiers: Hyperlipidemia type: unspecified Qualified Code(s): E78.5 - Hyperlipidemia , unspecified (5) Hypertension Current Visit: Yes Status: Acute Assessment and plan: Stable Qualifiers: Hypertension type: essential hypertension Qualified Code(s): I10 - Essential (primary) hypertension (6) Diabetes mellitus Current Visit: Yes Status: Chronic Assessment and plan: Patient takes insulin, metformin, sulfonylurea at home because of history of hypoglycemia at home, will not start basal insulin at this time plan: low-dose sliding scale insulin, cardiac/ada diet, aCHS Accu checks Qualifiers: Diabetes mellitus type: type 2 Diabetes mellitus 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 Diabetes mellitus complication status : with unspecified complications Qualified Code(s): E11.8 - Type 2 diabetes mellitus with unspecified complications; Z79.4 - superintendent container terminal (current) use of insulin (7) DVT prophylaxis Current Visit: Yes Status: Acute Assessment and plan: Heparin SQ (8) Acute encephalopathy Current Visit: Yes Status: Acute Assessment and plan: Acute transient metabolic encephalopathy occurring at night, likely secondary to CO2 narcosis from hypercarbic respiratory failure We will continue BiPAP at night, qualify tonight - Time Spent With Patient Total time spent is greater than 50% in coordination of care (as documented) at patient's floor/unit and/or counseling patient: - Subjective Interval history: The patient is seen and examined at bedside. According to report from the nurses, the patient has had some issues with hallucinations and delirium overnight. This is new for her, and according to her she has never experienced this at home. The patient says that she wakes up with some clarity , and can remember the episodes throughout the evening, however she does not know exactly what is going on. We discussed at length whether or not she is using BiPAP at home which she says that she has been prescribed CPAP but she does not use it anymore. Instead she just uses oxygen overnight. She seems poorly compliant with most of her medical management. - Constitutional Vitals: Temp Pulse Resp BP Pulse Ox 98.5 F 64 18 137/79 95 03/25/18 07:37 03/25/18 07:37 03/25/18 07:47 03/25/18 07:37 03/25/18 07:47 General appearance: Present: A&O X 3, morbidly obese, pleasant, no acute distress, answers questions appropriately Exam: Gen: Vitals noted. No acute distress. On BiPAP HEENT: Normocephalic, atraumatic Neck: Supple. No adenopathy. Cardiac: RRR, 1-2/6 systolic murmur, +S1/S2 Pulmonary: diffuse wheezes throughout Abdomen: soft, nontender, BS noted, no guarding Back: Nontender throughout. MSK: ROM intact, no joint swelling noted Extremities: trace BLE edema, nontender calf, no cyanosis or clubbing Neuro: A&Ox3, moves all extremities, no focal deficits Psych: Appropriate mood and behavior Internal Medicine: Result - Labs CBC & Chem 7: 03/23/18 03:03 03/24/18 02:43 Consult Discharge Plan - Plan Referrals: NONE,PCP [Primary Care Provider] - <Tino Szymanski Yessenia - Last Filed: 03/25/18 18:41> Date of Encounter: 03/25/18 - Assessment and plan (1) Acute respiratory failure with hypoxia and hypercapnia Current Visit: Yes Status: Acute (2) Acute exacerbation of chronic obstructive airways disease Current Visit: Yes Status: Acute (3) Hypoglycemia Current Visit: Yes Status: Acute (4) Hyperlipidemia Current Visit: Yes Status: Acute Qualifiers: Hyperlipidemia type: mixed hyperlipidemia Qualified Code(s): E78.2 - Mixed hyperlipidemia (5) Hypertension Current Visit: Yes Status: Acute Qualifiers: Hypertension type: essential hypertension Qualified Code(s): I10 - Essential (primary) hypertension (6) Diabetes mellitus Current Visit: Yes Status: Chronic Qualifiers: Diabetes mellitus type: type 2 Diabetes mellitus nursing home 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 Diabetes mellitus complication status: with hyperglycemia Qualified Code(s): E11.65 - Type 2 diabetes mellitus with hyperglycemia; Z79.4 - nursing home (current) use of insulin (7) Acute encephalopathy Current Visit: Yes Status: Acute (8) DVT prophylaxis Current Visit: Yes Status: Acute - Time Spent With Patient Total time spent is greater than 50% in coordination of care (as documented) at patient's floor/unit and/or counseling patient: - Constitutional Vitals: Temp Pulse Resp BP Pulse Ox 98.6 F 63 16 133/76 96 03/25/18 15:07 03/25/18 15:07 03/25/18 16:26 03/25/18 15:07 03/25/18 16:26 Internal Medicine: Result - Labs CBC & Chem 7: 03/23/18 03:03 03/24/18 02:43 - Attending Attestation I examined this patient and my medical decision-making was reviewed with the Resident Physician om 03/25/18. I agree with the documented findings, disposition and treatment plan as described except to the extent set forth below. Ms Stock is currently in observation for acute resp failure and COPD exac. She remains moderate to high risk due to potential for worsening clinical and respiratory status. Ms Stock is feeling OK. No fever or chills. Still with cough. To have bipap eval tonight. Still with some wheezing. Exam alert Comfortable at this time Mucus membranes dry Heart reg Scant end exp wheeze Abd soft I/P 1. Resp failure 2. COPD Further diagnoses and plan as above.
[2018-03-25] MEDS: *HR* Glimepiride 4 MG TABLET PO SCH (08:55)
[2018-03-25] MEDS: Furosemide 20 MG/2 ML VIAL IVP SCH ×2 (08:55→20:33)
[2018-03-25] MEDS: Famotidine 20 MG TABLET PO SCH ×2 (08:55→20:32)
[2018-03-25] MEDS: Gabapentin 400 MG CAPSULE PO SCH ×4 (08:55→23:20)
[2018-03-25] MEDS: MethylPREDNISolone 40 MG/ML VIAL IVP SCH ×2 (08:55→20:33)
[2018-03-25] MEDS: Insulin LISPRO 300 UNITS/3 ML VIAL SQ SCH ×4 (08:55→20:34)
[2018-03-25] MEDS: *HR* OxyCODONE/APAP 7.5/325 TABLET PO PRN ×2 (08:59→19:01)
[2018-03-25] MEDS: Aspirin Enteric Coated 81 MG Tablet PO SCH (17:09)
[2018-03-25] MEDS ORDERED: Insulin DETEMIR 100 UNIT/ML X5UNITS SQ SCH (21:00)
[2018-03-26] MEDS: Ipratropium/Albuterol Neb 3 ML IH SCH ×4 (03:53→16:09)
[2018-03-26 05:10] LABS: Basophils % 0.2 %; Hematocrit 43.1 % (35.3-44.9); Hemoglobin 13.3 g/dL (11.5-15.4); Immature Granulocytes % 0.9 % (0-4); Lymphocytes # 1.4 K/mcL (0.6-4.6); Lymphocytes % 14.8 %; Mean Corpuscular HGB Conc 30.9 g/dL (31.6-35.5); Mean Corpuscular Hemoglobin 28.7 pg (28.0-33.3); Mean Corpuscular Volume 92.9 fL (83.0-100.0); Mean Platelet Volume 9.3 fL (9.4-12.4); Monocytes # 0.5 K/mcL (0.0-1.3); Monocytes % 5.2 %; Neutrophils # 7.2 K/mcL (1.6-8.9); Platelet Count 242 K/mcL (140-400); Red Blood Count 4.64 M/mcL (3.82-4.97); Red Cell Distribution Width 14.2 % (11.5-14.5); Segmented Neutrophils % 78.9 %
[2018-03-26 05:33] LABS: Alanine Aminotransferase 19 Units/L (7-52); Albumin 3.8 g/dL (3.5-5.7); Albumin/Globulin Ratio 1.3 (1.1-2.2); Alkaline Phosphatase 80 Units/L (34-104); Aspartate Amino Transferase 10 Units/L (13-39); BUN/Creatinine Ratio 61 (6-26); Bilirubin,Total 0.6 mg/dL (0.3-1.0); Blood Urea Nitrogen 30 mg/dL (6-20); Calcium 9.2 mg/dL (8.6-10.3); Carbon Dioxide 41 mEq/L (23-29); Chloride 91 mEq/L (98-107); Glucose 420 mg/dL (70-105); Osmolality,Calculated 306 (280-300); Potassium 4.9 mEq/L (3.5-5.1); Sodium 136 mEq/L (136-145); Total Protein 6.8 g/dL (6.4-8.9); eGFR For African Americans > 60 (> 60); eGFR For Non-African Americans > 60 (> 60)
[2018-03-26 06:06] LABS: ABG Base Excess 16 mEq/L (-2 to 3); ABG HCO3 47 mEq/L (21-27); ABG Oxygen Saturation 94 % (95-98); ABG PCO2 90 mmHg (35-45); ABG PH 7.33 pH Units (7.32-7.45); ABG PO2 82 mmHg (85-104); ABG TCO2 50 mEq/L (20-26); Blood Gas Modality 2
[2018-03-26] MEDS: Budesonide/Formoterol 160/4.5 MDI IH SCH (07:55)
[2018-03-26] MEDS: Aspirin Enteric Coated 81 MG Tablet PO SCH (08:19)
[2018-03-26] MEDS: Furosemide 20 MG/2 ML VIAL IVP SCH (08:19)
[2018-03-26] MEDS: *HR* OxyCODONE/APAP 7.5/325 TABLET PO PRN ×2 (08:19→16:21)
[2018-03-26] MEDS: *HR* Heparin 5,000 UNIT/ML VIAL SQ SCH ×2 (08:19→13:02)
[2018-03-26] MEDS: Gabapentin 400 MG CAPSULE PO SCH ×3 (08:19→16:17)
[2018-03-26] MEDS: Famotidine 20 MG TABLET PO SCH (08:19)
[2018-03-26] MEDS: MethylPREDNISolone 40 MG/ML VIAL IVP SCH (08:19)
[2018-03-26] MEDS: Insulin LISPRO 300 UNITS/3 ML VIAL SQ SCH ×3 (08:20→16:17)
[2018-03-26] MEDS ORDERED: Insulin DETEMIR 100 UNIT/ML X5UNITS SQ ONE (08:48)
[2018-03-26] MEDS ORDERED: Insulin LISPRO 300 UNITS/3 ML VIAL SQ SCH (08:49)
--- NOTE | 2018-03-26 08:54 | Discharge Summary ---
<Jason Vuong - Last Filed: 03/26/18 13:19> - NOTES TO OUTPATIENT PROVIDER Notes to Outpatient Provider: The patient presented with Acute COPD exacerbation with hypercapnia and hypoxia. She was admitted and treated for hypoxic hypercapnic respiratory failure, and treated with antibiotics and steroids. In this time, it was determined that she would require home BiPAP and home o2. While in the hospitaly, her glucose was highly elevated, requiring increasing doses of SQ Insulin. I discharged her with sliding scale insulin. Told patient to stop glimeperide. Orders not resulted at time of discharge: Pending orders 03/23/18 10:53 UA w. reflex culture [Urinalysis Reflex Cult & Micro] [URIN] Routine Date of Encounter: 03/26/18 Time of Encounter: 08:45 - Discharge Diagnosis (1) Acute respiratory failure with hypoxia and hypercapnia Priority: Primary Status: Acute Assessment and Plan: Acute respiratory failure with hypoxia and hypercapnia likely secondary to COPD exacerbation VBG on arrival 7.27/80/237/37 On exam when the patient removes oxygen or BiPAP she desaturates into the low 80s Additionally, the patient has been increasing in bicarbonate on BMP daily Likely the patient is a chronic retainer of CO2 and requires BiPAP at home Additionally, the patient has had some encephalopathy which is likely secondary to CO2 narcosis CPAP was attempted and the patient failed the therapy Overnight BiPAP was required to decrease hypercarbia (2) Acute exacerbation of chronic obstructive airways disease Priority: Primary Status: Acute Assessment and Plan: -Acute on chronic hypoxic hypercapnic respiratory failure secondary to acute COPD exacerbation from acute bacterial bronchitis -3 days of increased cough with yellow/white sputum production, increased shortness of breath. -Chest x-ray showed increased interstitial markings, mild acute pulmonary edema , small right pleural effusion -Completed Zithromax day 3 (stop after 3rd dose) -Continue scheduled duonebs Patient has remained hypercarbic in the morning, and somewhat encephalopathic at night CPAP tried and failed Requires BiPAP to manage Hypercapnia (3) Hypoglycemia Priority: Secondary Status: Resolved Assessment and Plan: Patient reports multiple episodes of hypoglycemia at home with sugars running in the 50s. She was taking 30 units of Lantus at night at home, Hgb A1c 8.5 With steroids, glucose has been highly elevated I will discharge home on 30U lantus as previously dosed, and give sliding scale insulin (4) Hyperlipidemia Priority: Secondary Status: Chronic Assessment and Plan: Continue Statin Qualifiers: Hyperlipidemia type: mixed hyperlipidemia Qualified Code(s): E78.2 - Mixed hyperlipidemia (5) Hypertension Priority: Secondary Status: Chronic Assessment and Plan: Stable Qualifiers: Hypertension type: essential hypertension Qualified Code(s): I10 - Essential (primary) hypertension (6) Diabetes mellitus Priority: Secondary Status: Chronic Assessment and Plan: Patient takes insulin, metformin, sulfonylurea at home Continue home meds, stop glimeperide Start Sliding scale insulin Qualifiers: Diabetes mellitus type: type 2 Diabetes mellitus long term care pharmacist insulin use: with fdc use Diabetes mellitus complication status: with hyperglycemia Qualified Code(s): E11.65 - Type 2 diabetes mellitus with hyperglycemia; Z79.4 - [facility] (current) use of insulin (7) Acute encephalopathy Priority: Secondary Status: Resolved Assessment and Plan: Acute transient metabolic encephalopathy occurring at night, likely secondary to CO2 narcosis from hypercarbic respiratory failure Hospital course: Ms. Stock is a 52 year old female with history of uncontrolled DM2, COPD who was admitted to [facility] with severe copd exacerbation. She was treated with IV steroids and antibiotics, and was qualified for BiPAP due to hypercapnic respiratory failure. The patient is stable for discharge to home. For detailed hospital course, including treatment plan at time of discharge, please see individual assessments. Discharge discussed with: patient, family, nurse, case management - Time Spent with Patient Total time spent providing and/or coordinating discharge services: - Discharge Medications Prescriptions: Ipratropium/Albuterol Neb [Duoneb] 3 ml IH [id number] PRN 30 Days inhsol PRN Reason: Shortness Of Breath/Wheezing Insulin LISPRO [Humalog Kwikpen U-100] 0 unit SQ TIDAC #15 mls Pen Needle, Diabetic [1St Tier Unifine Pentips] 1 each SQ TIDAC #100 dis.needle predniSONE [PredniSONE] 10 mg PO DAILY #30 tablet Home Medications: Albuterol Sulfate [Ventolin Hfa] 2 puff IH Q4-6H PRN 03/22/18 [History] Atorvastatin Calcium [Lipitor] 20 mg PO HS 03/22/18 [History] Budesonide/Formoterol 160/4.5 [Symbicort 160/4.5] 2 puff IH BIDR 03/22/18 [ History] Gabapentin [Neurontin] 800 mg PO QID 03/22/18 [History] Insulin Glargine,Hum.rec.anlog [Lantus Solostar] 30 unit SQ HS 03/22/18 [History ] Ipratropium [ATROVENT Inhaler] 2 puff IH Q6H PRN 03/22/18 [History] Losartan Potassium [Cozaar] 100 mg PO DAILY 03/22/18 [History] Meloxicam 15 mg PO DAILY 03/22/18 [History] Metformin HCl [Glucophage] 1,000 mg PO BID 03/22/18 [History] Montelukast [Singulair] 10 mg PO HS 03/22/18 [History] Oxycodone HCl/Acetaminophen [Percocet 7.5-325 mg Tablet] 1 tab PO TID PRN [History] Ranitidine HCl [Acid Tallow Maker] 150 mg PO BID 03/22/18 [History] Saxagliptin HCl [Onglyza] 5 mg PO DAILY 03/22/18 [History] Aspirin [Adult Aspirin Regimen] 81 mg PO DAILY 03/25/18 [History] Docusate [Colace] 200 mg PO DAILY capsule 03/26/18 [Rx] Insulin LISPRO [Humalog Kwikpen U-100] 0 unit SQ TIDAC #15 mls 03/26/18 [Rx] Ipratropium/Albuterol Neb [Duoneb] 3 ml IH [id number] PRN 30 Days inhsol 03/26/18 [Rx] Pen Needle, Diabetic [1St Tier Unifine Pentips] 1 each SQ TIDAC #100 dis.needle 03/26/18 [Rx] predniSONE [PredniSONE] 10 mg PO DAILY #30 tablet 03/26/18 [Rx] Allergies/Adverse Reactions: 3 Allergy/AdvReac Type Severity Reaction Status Date / Time acetaminophen Allergy Rash Verified 03/22/18 16:26 [From Darvocet-N] propoxyphene Allergy Rash Verified 03/22/18 16:26 [From Darvocet-N] Date of admission: 03/22/18 17:26 Primary care physician: PCP NONE Discharging clinician: Jason Vuong Anticipated date of discharge: 03/26/18 - Constitutional Vitals: Temp Pulse Resp BP Pulse Ox 98.5 F 73 16 134/69 92 03/26/18 08:13 03/26/18 08:13 03/26/18 08:13 03/26/18 08:13 03/26/18 08:13 General appearance: Present: A&O X 3, morbidly obese, pleasant, no acute distress, answers questions appropriately Exam: Gen: Vitals noted. No acute distress. On BiPAP HEENT: Normocephalic, atraumatic Neck: Supple. No adenopathy. Cardiac: RRR, 1-2/6 systolic murmur, +S1/S2 Pulmonary: diffuse wheezes throughout Abdomen: soft, nontender, BS noted, no guarding Back: Nontender throughout. MSK: ROM intact, no joint swelling noted Extremities: trace BLE edema, nontender calf, no cyanosis or clubbing Neuro: A&Ox3, moves all extremities, no focal deficits Psych: Appropriate mood and behavior - Patient Status Disposition: Home, Self-Care Condition: Fair Functional capacity at discharge: independent ambulation Overall status at discharge: patient is progressing back to baseline - Discharge Instructions Follow Up With: Ace Mcintosh [Non-Partnered Physician] - 04/02/18 9:00 am (The Doctor is located in the building by Occupational [facility]) Additional Instructions: Follow-up with primary care within 2-3 days Continue to use 30U Lantus in the evening. Check glucose before each meal and use Short acting insulin as described in the sliding scale below. Wear BiPAP at night and during naps, Wear O2 continuously Continue prednisone taper as directed Return to ED for worsening symptoms, chest pain, changes in level of consciousness Insulin Sliding Scale Schedule Blood Glucose <140 mg/dl -- no insulin 141-180 mg/dl -- 2U Insulin 181-220 mg/dl -- 4U Insulin 221-260 mg/dl -- 6U Insulin 261-300 mg/dl -- 8U Insulin 301-350 mg/dl -- 10U Insulin 351-400 mg/dL -- 12U Insulin >400 mg/dl -- 14U Insulin - Diet and Activity Activity: resume usual activities as tolerated, wear oxygen at all times Diet: diabetic diet <Tino Szymanski - Last Filed: 03/26/18 14:13> Orders not resulted at time of discharge: Pending orders 03/23/18 10:53 UA w. reflex culture [Urinalysis Reflex Cult & Micro] [URIN] Routine Date of Encounter: 03/26/18 - Discharge Diagnosis (1) Acute exacerbation of chronic obstructive airways disease Priority: Primary Status: Chronic (2) Hypoglycemia Priority: Secondary Status: Resolved (3) Hyperlipidemia Priority: Secondary Status: Chronic Qualifiers: Hyperlipidemia type: mixed hyperlipidemia Qualified Code(s): E78.2 - Mixed hyperlipidemia (4) Hypertension Priority: Secondary Status: Chronic Qualifiers: Hypertension type: essential hypertension Qualified Code(s): I10 - Essential (primary) hypertension (5) DVT prophylaxis Priority: Secondary Status: Acute (6) Diabetes mellitus Priority: Secondary Status: Chronic Qualifiers: Diabetes mellitus type: type 2 Diabetes mellitus fdc insulin use: with fdc use Diabetes mellitus complication status: with hyperglycemia Qualified Code(s): E11.65 - Type 2 diabetes mellitus with hyperglycemia; Z79.4 - intermediate card tender (current) use of insulin (7) Acute respiratory failure with hypoxia and hypercapnia Priority: Secondary Status: Acute (8) Acute encephalopathy Priority: Secondary Status: Resolved (9) Chronic respiratory failure with hypoxia and hypercapnia Priority: Secondary Status: Chronic (10) Tobacco abuse Priority: Secondary Status: Chronic Hospital course: Ms. Stock is a 52 year old female - Time Spent with Patient Total time spent providing and/or coordinating discharge services: 37min Date of admission: 03/22/18 17:26 Primary care physician: PCP NONE Consults: 03/26/18 10:44 Consult to Physical Therapy [CONS] Routine Comment: Evaluate, develop and implement POC Reason for Consult: weakness/deconditioning Does patient have active BEDREST order?: No Is patient medically & hemodynamically stable?: Yes OT [Consult to Occupational Therapy] [CONS] Routine Comment: Evaluate, develop and implement POC Reason for Consult: weakness/deconditioning Does patient have active BEDREST order?: No Is patient medically & hemodynamically stable?: Yes - Constitutional Vitals: Temp Pulse Resp BP Pulse Ox 98.3 F 71 18 136/74 93 03/26/18 11:55 03/26/18 11:55 03/26/18 11:55 03/26/18 11:55 03/26/18 11:55 - Attending Attestation I examined this patient and my medical decision-making was reviewed with the Resident Physician on 5/16/18. I agree with the documented findings, disposition and treatment plan as described except to the extent set forth below. Ms Stock has been in observation for COPD exacerbation. She is now afebrile. Her breathing is at baseline. She is requiring oxygen throughout the day. She has failied CPAP and requires bipap at night. Exam alert Comfortable Mucus membranes dry Heart reg End exp wheeze noted. Abd soft Plan D/C home today. Bipap at night Continuous oxygen Follow up with PCP.
[2018-03-26 12:00] VITALS: BP 136/74
[2018-03-26] MEDS ORDERED: Insulin LISPRO 300 UNITS/3 ML VIAL SQ ONE (14:11)
[2018-03-27] MEDS ORDERED: predniSONE 20 MG TABLET PO SCH (09:00)
== END 2018-03-26 18:16 | disposition home or self-care (01) ==
LOC: EMEROO 14:10 → 2NENU 14:10 → SUATTDRO 17:26 → 2NENU 19:26
PROVIDERS: ADMIT Internal Medicine; ATTEND Internal Medicine

== ENCOUNTER 2021-01-10 11:50 | Observation (INO) ==
[2021-01-10] MEDS ORDERED: methylPREDNISolone 125 MG/2 ML VIAL IVP ONE (12:55)
[2021-01-10] MEDS ORDERED: Ipratropium/Albuterol Neb 3 ML IH ONE (12:55)
[2021-01-10 13:00] LABS: Basophils # 0.1 K/mcL (0.0-0.2); Basophils % 0.5 %; Eosinophils # 0.2 K/mcL (0.0-0.6); Hematocrit 38.1 % (35.3-44.9); Hemoglobin 11.6 g/dL (11.5-15.4); Immature Granulocytes % 0.9 % (0-4); Lymphocytes # 1.6 K/mcL (0.6-4.6); Lymphocytes % 14.1 %; Mean Corpuscular HGB Conc 30.4 g/dL (31.6-35.5); Mean Corpuscular Hemoglobin 29.8 pg (28.0-33.3); Mean Corpuscular Volume 97.9 fL (83.0-100.0); Mean Platelet Volume 9.2 fL (9.4-12.4); Monocytes # 0.8 K/mcL (0.0-1.3); Monocytes % 6.8 %; Neutrophils # 8.7 K/mcL (1.6-8.9); Platelet Count 272 K/mcL (140-400); Red Blood Count 3.89 M/mcL (3.82-4.97); Red Cell Distribution Width 14.2 % (11.5-14.5); Segmented Neutrophils % 75.7 %; White Blood Count 11.5 K/mcL (4.3-11.1)
[2021-01-10 13:25] LABS: BUN/Creatinine Ratio 31 (6-26); Blood Urea Nitrogen 33 mg/dL (6-20); Calcium 9.1 mg/dL (8.6-10.3); Carbon Dioxide 35 mEq/L (23-29); Chloride 96 mEq/L (98-107); Glucose 312 mg/dL (70-105); Osmolality,Calculated 305 (280-300); Potassium 4.5 mEq/L (3.5-5.1); Sodium 138 mEq/L (136-145); Troponin I 0.04 ng/mL (< 0.04); eGFR For African Americans > 60 (> 60); eGFR For Non-African Americans 54 (> 60)
[2021-01-10] MEDS ORDERED: Aspirin 81 MG TAB.CHEW PO ONE (13:27)
[2021-01-10] MEDS ORDERED: Isovue-370 500 ML BOTTLE IVP ONE (13:54)
[2021-01-10] MEDS ORDERED: Acetaminophen 325 MG TABLET PO PRN (17:00)
[2021-01-10] MEDS ORDERED: Ondansetron 4 MG/2 ML VIAL IVP PRN (17:00)
[2021-01-10] MEDS ORDERED: Naloxone 0.4 MG/ML INJ IVP PRN (17:00)
[2021-01-10] MEDS ORDERED: Dextrose Gel 15 GM/37.5 ML TUBE PO PRN ×2 (17:04)
[2021-01-10] MEDS ORDERED: D5% in Water 1,000 ML IVC PRN (17:04)
[2021-01-10] MEDS ORDERED: *HR* Dextrose 50 % in Water (Vial) 50 ML VIAL IVP PRN (17:04)
[2021-01-10] MEDS ORDERED: Perflutren Lipid Microsphere 1.3 ML in 0.9 % Sodium Chloride 8.7 ML IVP PRN (17:59)
[2021-01-10 19:25] LABS: Troponin I 0.03 ng/mL (< 0.04)
[2021-01-10 19:36] LABS: Thyroid Stimulating Hormone 2.364 mcIU/mL (0.340-5.600)
[2021-01-10] MEDS: Insulin LISPRO 300 UNITS/3 ML VIAL SUBQ SCH ×2 (20:27→23:08)
[2021-01-10] MEDS: *HR* Heparin 5,000 UNIT/ML VIAL SQ SCH (20:30)
[2021-01-10] MEDS: Nystatin POWDER 30 GM BOTTLE TP SCH (20:30)
[2021-01-10] MEDS ORDERED: Insulin LISPRO 300 UNITS/3 ML VIAL SUBQ SCH (21:00)
[2021-01-10] MEDS ORDERED: Furosemide 40 MG/4 ML VIAL IVP SCH (21:00)
[2021-01-10] MEDS ORDERED: Ipratropium/Albuterol Neb 3 ML IH PRN (22:19)
[2021-01-10] MEDS ORDERED: Insulin DETEMIR 100 UNIT/ML X5UNITS SUBQ SCH (22:30)
[2021-01-11 00:41] LABS: Basophils % 0.3 %; Eosinophils % 0.1 %; Hematocrit 35.8 % (35.3-44.9); Hemoglobin 11.4 g/dL (11.5-15.4); Immature Granulocytes % 1.4 % (0-4); Lymphocytes # 0.9 K/mcL (0.6-4.6); Lymphocytes % 8.6 %; Mean Corpuscular HGB Conc 31.8 g/dL (31.6-35.5); Mean Corpuscular Hemoglobin 30.5 pg (28.0-33.3); Mean Corpuscular Volume 95.7 fL (83.0-100.0); Mean Platelet Volume 9.3 fL (9.4-12.4); Monocytes # 0.1 K/mcL (0.0-1.3); Neutrophils # 9.2 K/mcL (1.6-8.9); Platelet Count 278 K/mcL (140-400); Red Blood Count 3.74 M/mcL (3.82-4.97); Red Cell Distribution Width 13.9 % (11.5-14.5); Segmented Neutrophils % 88.6 %; White Blood Count 10.3 K/mcL (4.3-11.1)
[2021-01-11 00:47] LABS: VBG HCO3 32 mEq/L (21-27); VBG PCO2 45 mmHg (41-51); VBG PH 7.45 pH Units (7.32-7.42); VBG PO2 181 mmHg (25-50)
[2021-01-11 01:12] LABS: Calcium 9.1 mg/dL (8.6-10.3); Magnesium 1.8 mg/dL (1.6-2.6); Potassium 4.7 mEq/L (3.5-5.1)
[2021-01-11] MEDS: Insulin LISPRO 300 UNITS/3 ML VIAL SUBQ SCH ×5 (04:03→20:32)
[2021-01-11] MEDS: *HR* Heparin 5,000 UNIT/ML VIAL SQ SCH ×3 (04:07→21:18)
[2021-01-11 05:50] LABS: Estimated Average Glucose 223 mg/dl; Hemoglobin A1C 9.4 %
[2021-01-11] MEDS ORDERED: Insulin LISPRO 300 UNITS/3 ML VIAL SUBQ SCH (07:30)
[2021-01-11] MEDS ORDERED: Furosemide 20 MG/2 ML VIAL IVP SCH (09:00)
[2021-01-11] MEDS: Nystatin POWDER 30 GM BOTTLE TP SCH ×3 (09:02→21:17)
[2021-01-11] MEDS: Aspirin Enteric Coated 81 MG Tablet PO SCH (17:22)
[2021-01-11] MEDS: Budesonide/Formoterol 160/4.5 1 PUFF INH IH SCH (20:35)
[2021-01-11] MEDS ORDERED: Insulin DETEMIR 100 UNIT/ML X5UNITS SUBQ SCH ×2 (21:00)
[2021-01-11] MEDS: Gabapentin 400 MG CAPSULE PO SCH (21:17)
[2021-01-12 03:59] LABS: Basophils # 0.1 K/mcL (0.0-0.2); Basophils % 0.6 %; Eosinophils # 0.2 K/mcL (0.0-0.6); Eosinophils % 2.5 %; Hematocrit 37.5 % (35.3-44.9); Hemoglobin 11.7 g/dL (11.5-15.4); Immature Granulocytes % 0.8 % (0-4); Lymphocytes # 2.1 K/mcL (0.6-4.6); Lymphocytes % 21.8 %; Mean Corpuscular HGB Conc 31.2 g/dL (31.6-35.5); Mean Corpuscular Hemoglobin 30.5 pg (28.0-33.3); Mean Corpuscular Volume 97.7 fL (83.0-100.0); Mean Platelet Volume 9.4 fL (9.4-12.4); Monocytes # 0.8 K/mcL (0.0-1.3); Monocytes % 8.1 %; Neutrophils # 6.4 K/mcL (1.6-8.9); Platelet Count 285 K/mcL (140-400); Red Blood Count 3.84 M/mcL (3.82-4.97); Red Cell Distribution Width 14.3 % (11.5-14.5); Segmented Neutrophils % 66.2 %; White Blood Count 9.7 K/mcL (4.3-11.1)
[2021-01-12 04:22] LABS: BUN/Creatinine Ratio 38 (6-26); Blood Urea Nitrogen 43 mg/dL (6-20); Calcium 8.7 mg/dL (8.6-10.3); Carbon Dioxide 33 mEq/L (23-29); Chloride 95 mEq/L (98-107); Glucose 347 mg/dL (70-105); Osmolality,Calculated 307 (280-300); Potassium 4.2 mEq/L (3.5-5.1); Sodium 136 mEq/L (136-145); eGFR For African Americans > 60 (> 60); eGFR For Non-African Americans 50 (> 60)
[2021-01-12] MEDS: *HR* Heparin 5,000 UNIT/ML VIAL SQ SCH (06:43)
[2021-01-12 06:45] VITALS: BP 108/67
[2021-01-12] MEDS: Budesonide/Formoterol 160/4.5 1 PUFF INH IH SCH (07:42)
[2021-01-12] MEDS: Insulin LISPRO 300 UNITS/3 ML VIAL SUBQ SCH ×2 (09:00)
[2021-01-12] MEDS ORDERED: Famotidine 20 MG TABLET PO SCH (09:00)
[2021-01-12] MEDS ORDERED: Folic Acid 1 MG TABLET PO SCH (09:00)
[2021-01-12] MEDS ORDERED: Furosemide 20 MG TABLET PO SCH (09:00)
[2021-01-12] MEDS: Aspirin Enteric Coated 81 MG Tablet PO SCH (09:10)
[2021-01-12] MEDS: Gabapentin 400 MG CAPSULE PO SCH (09:10)
== END 2021-01-12 10:21 | disposition home health service (06) ==
LOC: EMEROOARM 11:50 → 3BNU 11:50 → SUATTDRO 15:52 → 3BNU 16:59
PROVIDERS: ADMIT Pharmacist; ATTEND Internal Medicine